=== PATIENT | female | born 1950 ===

== ENCOUNTER 2024-10-24 12:45 | Inpatient (IN) | payer OTHER ==
[~2024-10-24] VITALS: Ht 172.7 cm; Wt 95.3 kg
[~2024-10-24 12:45] MED LIST: ALENDRONATE SOD70 MG PO; CODE1TAB37 PO; INTEGRA PLUS C1 EACH PO; LOSARTAN POTASS50 MG PO; MAXIMUM D310000 UNIT PO; XARELTO10 MG PO
[2024-10-24] MEDS ORDERED: ZESTRIL20 MG PO (13:03)
[2024-10-24] MEDS ORDERED: BUSPIRONE HCL7.5 MG (13:03)
[2024-10-24] MEDS ORDERED: ECOTRIN81 MG PO (13:04)
[2024-10-24] MEDS ORDERED: SYNTHROID50 MCG PO (13:04)
[2024-10-24] MEDS ORDERED: PRESERVISION A1 EAC1 PO (13:05)
[2024-10-24 13:56] VITALS: BP 141/84
[2024-10-24 15:15] LABS: RH POSITIVE
[2024-10-30] MEDS ORDERED: LIDOCAINE HCL 1%/EPINEPHRINE 20ML VIAL IJ ONE (06:58)
[2024-10-30] MEDS ORDERED: KETOROLAC TROMETHAMINE 60 MG VIAL IM ONE (06:58)
[2024-10-30] MEDS ORDERED: BUPIVACAINE HCL/MPF 0.5% 30ML VIAL ONE (06:58)
[2024-10-30] MEDS ORDERED: TRANEXAMIC ACID 100MG/1ML (1000MG) AMPUL IV ONE (07:03)
[2024-10-30] MEDS ORDERED: CEFOXITIN SODIUM 2,000 MG VIAL IV ONE (07:03)
[2024-10-30] MEDS ORDERED: ONDANSETRON HCL 2 MG/ML VIAL IV PRN (10:45)
[2024-10-30] MEDS ORDERED: SODIUM CHLORIDE 0.45 % 1,000 ML IV SCH (10:45)
[2024-10-30] MEDS ORDERED: MORPHINE SULFATE 2 MG/ML CARTRIDGE IV ONE ×2 (10:45→11:20)
[2024-10-30] MEDS ORDERED: MORPHINE SULFATE 4 MG/ML CARTRIDGE IV PRN (10:45)
[2024-10-30] MEDS ORDERED: CEFAZOLIN SODIUM 1,000 MG VIAL ONE (11:21)
[2024-10-30] MEDS ORDERED: CEFAZOLIN SODIUM 1,000 MG VIAL IV SCH (12:00)
[2024-10-30] MEDS ORDERED: MORPHINE SULFATE 4 MG/ML VIAL IV ONE (12:45)
[2024-10-30 13:40] VITALS: BP 154/77; O2SAT 97
[2024-10-30 16:41] VITALS: BP 130/77; O2SAT 97
[2024-10-30] MEDS ORDERED: GENTAMICIN SULFATE 40 MG/ML VIAL IV SCH (17:00)
[2024-10-31] VITALS: BP 106/69; O2SAT 95
[2024-10-31] MEDS ORDERED: LEVOTHYROXINE SODIUM 50 MCG TABLET PO SCH (06:00)
[2024-10-31 06:48] LABS: BASO % 0.3 % (0.1-1.2); EOS # 0.01 (0.04-0.54); EOS % 0.1 % (0.7-7.0); HEMATOCRIT 43.2 % (34.1-44.9); HEMOGLOBIN 13.7 g/dL (11.2-15.7); LYMPH # 0.49 (1.18-3.74); LYMPH % 5.4 % (19.3-53.1); MEAN CORPUSCULAR HEMOGLOBIN 26.8 pg (25.6-32.2); MONO # 0.65 (0.24-0.82); MONO % 7.2 % (4.7-12.5); NEUT # 7.87 (1.56-6.13); NEUT % 86.7 % (34.0-71.1); PLATELET COUNT 200 K/uL (163-369); RED BLOOD COUNT 5.11 M/uL (3.93-5.22); RED CELL DISTRIBUTION WIDTH 14.7 % (11.6-14.4)
[2024-10-31 08:00] VITALS: BP 143/80; O2SAT 95
[2024-10-31] MEDS ORDERED: ACETAMINOPHEN WITH CODEINE 1 UDTAB TABLET PO PRN (08:00)
[2024-10-31] MEDS ORDERED: BACITRACIN 28.35 GM OINT.TUBE TOP SCH (09:00)
[2024-10-31] MEDS ORDERED: LISINOPRIL 20 MG TABLET PO SCH (09:00)
[2024-10-31] MEDS ORDERED: SENNA/DOCUSATE SODIUM 1 TAB TABLET PO SCH (09:00)
[2024-10-31] MEDS ORDERED: IRON FUM,PS/FOLIC/BCOMP,C NO.9 1 CAP CAPSULE PO SCH (09:00)
[2024-10-31] MEDS ORDERED: RIVAROXABAN 10 MG TAB PO SCH (09:00)
[2024-10-31] MEDS ORDERED: BUSPIRONE HCL 15 MG TABLET PO SCH (09:00)
[2024-10-31] MEDS ORDERED: ACETAMINOPHEN 500 MG GEL..CAP PO SCH (12:00)
[2024-10-31 12:32] LABS: ALBUMIN 3.3 gm/dL (3.4-5.0); BILIRUBIN TOTAL 0.5 mg/dL (0.3-1.2); CALCIUM 8.9 mg/dL (8.5-10.1); CREATININE SERUM 0.83 mg/dL (0.55-1.02); GFR 66.84; GLOBULINA 3.3 G/DL (2.4-3.5); POTASSIUM 4.14 mEq/L (3.5-5.1); TOTAL PROTEIN 6.6 gm/dL (6.4-8.2)
[2024-10-31 12:38] LABS: COVID-19 AG NEGATIVE (NEGATIVE)
[2024-10-31] MEDS ORDERED: ACETAMINOPHEN WITH CODEINE 1 UDTAB TABLET PO ONE (19:00)
[2024-10-31] MEDS ORDERED: SULFAMETHOXAZOLE/TRIMETHOPRIM DS 1 TAB PO SCH (21:00)
[2024-11-01 01:26] VITALS: BP 145/76; O2SAT 97
[2024-11-01] MEDS ORDERED: INTEGRA PLUS C1 EACH PO (06:44)
[2024-11-01] MEDS ORDERED: Septra Ds Tablet PO (06:44)
[2024-11-01] MEDS ORDERED: XARELTO10 MG PO (06:44)
[2024-11-01] MEDS ORDERED: ACETAMINOPHEN-1 EAC2 PO (06:45)
[2024-11-01 08:17] LABS: BASO % 0.5 % (0.1-1.2); EOS # 0.03 (0.04-0.54); EOS % 0.4 % (0.7-7.0); HEMATOCRIT 41.2 % (34.1-44.9); HEMOGLOBIN 13.4 g/dL (11.2-15.7); LYMPH # 0.45 (1.18-3.74); LYMPH % 5.5 % (19.3-53.1); MEAN CORPUSCULAR HEMOGLOBIN 27.3 pg (25.6-32.2); MONO # 0.98 (0.24-0.82); PLATELET COUNT 199 K/uL (163-369); RED CELL DISTRIBUTION WIDTH 14.9 % (11.6-14.4)
[2024-11-01 09:08] VITALS: BP 140/76; O2SAT 95
[2024-11-01 16:35] VITALS: BP 163/83; O2SAT 96
[2024-11-02 00:55] VITALS: BP 133/82; O2SAT 100
[2024-11-02 07:30] VITALS: BP 120/78; O2SAT 95
[2024-11-02 16:00] VITALS: BP 160/80; O2SAT 95
== END 2024-11-02 15:48 | disposition designated cancer center or children's hospital (05) | DRG 470 ==
LOC: O/R 10-30 05:05 → SURG 10-30 05:05 → SURH 10-30 07:00 → SURG 10-30 12:33 → SURH 10-30 12:45 → SURG 11-02 15:48
PROVIDERS: ADMIT Orthopaedic Surgery Sports Medicine; ATTEND Orthopaedic Surgery Sports Medicine
PROC: 0SRC0J9 Replacement of Right Knee Joint with Synthetic Substitute, Cemented, Open Approach (ICD-10-PCS; principal; 2024-10-30 07:00)
DX: M17.11 Unilateral primary osteoarthritis, right knee (principal)